=== PATIENT | female | born 1935 | race Hispanic/Latino ===

== ENCOUNTER → 2022-04-03 | Outpatient (CLI) | payer OTHER, MEDICARE ==
[~2022-04-03] MED LIST: ASPI-556 PO
== END | disposition home or self-care (01) ==
LOC: RAH 10:00
PROVIDERS: ATTEND Family Medicine
DX: M79.604 Pain in right leg (principal); M79.605 Pain in left leg
CPT/HCPCS: 93922

== ENCOUNTER 2022-06-12 19:07 | Emergency (ER) | payer OTHER, MEDICARE ==
[~2022-06-12] VITALS: Ht 170.2 cm; Wt 74.8 kg
[2022-06-12] MEDS ORDERED: TRAMADOL HCL 50 MG TABLET PO ONE (22:30)
[2022-06-13 02:12] VITALS: BP 153/76
== END 2022-06-13 02:15 | disposition home or self-care (01) ==
LOC: EDH 19:07
DX: S72.142A Displaced intertrochanteric fracture of left femur, initial encounter for closed fracture (principal); F41.9 Anxiety disorder, unspecified; Z48.89 Encounter for other specified surgical aftercare; X58.XXXA Exposure to other specified factors, initial encounter; Y93.89 Activity, other specified; Y92.89 Other specified places as the place of occurrence of the external cause; Y99.8 Other external cause status
CPT/HCPCS: 73502